=== PATIENT | female | born 1955 | race Two or more races ===

== ENCOUNTER 2021-08-06 22:24 | Inpatient (IN) | payer MEDICARE, OTHER ==
[~2021-08-06] VITALS: Ht 165.1 cm; Wt 59.9 kg
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
[2021-08-07] MEDS ORDERED: PREG-58 PO (12:01)
[2021-08-07] MEDS ORDERED: SUMA100T16 PO (12:01)
[2021-08-07] MEDS ORDERED: OXYC-133 PO (12:01)
[2021-08-07] MEDS ORDERED: AMLO-212 PO (12:01)
[2021-08-07] MEDS ORDERED: MECL-159 PO (12:04)
[2021-08-07] MEDS ORDERED: ASPI-966 PO (12:04)
[2021-08-07] MEDS ORDERED: MAGNESIUM HYDROXIDE 30 ML UDC PO PRN (12:30)
[2021-08-07] MEDS ORDERED: LORAZEPAM 0.5 MG TABLET PO PRN (12:30)
[2021-08-07] MEDS ORDERED: BLOOD SUGAR DIAGNOSTIC 1 EACH STRIP IN ONE (12:30)
--- NOTE | 2021-08-07 13:08 | NUR ---
NATHANIEL Initial Discharge Plan: Pt was currently visiting her daughter at [place], [place]. Pt stated that she would want a nursing facility. NATHANIEL will work with the MD and treatment team to coordinate appropriate discharge.
--- NOTE | 2021-08-07 13:24 | NUR ---
NATHANIEL Family Contact: SW attempted to contact pt's daughter Tamia ([phone]) to gather collateral. However, daughter was unavailable and this check writer left a detailed voicemail.
[2021-08-07 16:00] VITALS: BP 154/73
--- NOTE | 2021-08-07 16:03 | NUR ---
NATHANIEL Family Contact: NATHANIEL spoke with patient's daughter Tamia ([phone]) to gather collateral. Daughter stated that pt has been an alcoholic and has been on cocaine since the age of 15. She reported that pt used to live in [place]. Daughter expressed that she currently lives in [place], [place] and is unable to take care of pt. She is unmanageable per daughter and stated she will need a SNF. NATHANIEL contacted Dr. Tinoco and shared this information.
--- NOTE | 2021-08-07 16:08 | NUR ---
Substance Abuse Intervention: Patient was provided with a brief substance abuse intervention and referred to [facility] ([phone]), [facility] ([phone]), and [facility] ([phone]). Pt refused intervention and denied use of drugs. Pt's daughter Tamia expressed that pt abuses drugs and uses cocaine. Daughter expressed that pt is alcoholic and started at the age 15.
[2021-08-07] MEDS: ACETAMINOPHEN 325 MG TABLET PO PRN (17:11)
--- NOTE | 2021-08-07 17:12 | NUR ---
RN NOTE-M PT W INCREASING PAIN AND RESTLESSNESS. UNCOMFORTABLE. REQUESTING OPIATE PAIN MED. MESSAGED TO [facility] ABOUT RECONCILING RX, ATIVAN 1 MG AND TYLENOL 650 MG ADMINISTERED FOR ANXIETY AND PAIN
[2021-08-07] MEDS ORDERED: oxyCODONE IR immediate release 5 MG PO PRN (17:30)
--- NOTE | 2021-08-07 17:40 | NUR ---
RN NOTE- TO [facility] ORDERED OXYCODONE 10 MG PO Q6H PRN
[2021-08-07] MEDS ORDERED: AMLODIPINE BESYLATE 5 MG TABLET PO PRN (20:00)
--- NOTE | 2021-08-07 20:00 | NUR ---
GPS-RN NOTES: PATIENT REFUSED PHOTO OF HER FACE TO BE TAKEN FOR PROPER IDENTIFICATION. DESPITE OF EXPLANATION PROVIDED PT STILL REFUSED.
[2021-08-07 20:08] VITALS: BP 152/75
[2021-08-07] MEDS: risperiDONE 1 MG TABLET PO SCH (21:00)
[2021-08-07] MEDS: ASPIRIN/ACETAMINOPHEN/CAFFEINE 1 EACH TABLET PO PRN (21:34)
--- NOTE | 2021-08-07 21:34 | NUR ---
GPS-RN NOTES: EXCEDRIN 1 TAB PO GIVEN PER PATIENT'S REQUEST FOR MIGRAINE. WILL CONTINUE TO MONITOR.
[2021-08-07] MEDS: oxyCODONE IR immediate release 5 MG PO PRN (21:40)
--- NOTE | 2021-08-07 21:40 | NUR ---
GPS-RN NOTES: BILATERAL SHOULDER PAIN PATIENT C/O BILATERAL SHOULDER PAIN ON A PAIN SCALE OF 8/10. PRN OXYCODONE IR 10MG PO GIVEN ORDERED PER PT'S REQUEST. WILL CONTINUE TO REASSESS.
--- NOTE | 2021-08-07 21:41 | NUR ---
GPS-RN NOTES: MEDICATION REFUSAL PATIENT REFUSED SCHEDULED RISPERDAL FOR TONIGHT. DESPITE OF EDUCATION PROVIDED REGARDING MEDICATION COMPLIANCE. PATIENT CONTINUED TO REFUSE X3. PATIENT STATES "NO, I DON'T WANT IT, I'M NOT CRAZY". WILL CONTINUE TO MONITOR AND WILL NOTIFY MD.
[2021-08-08] MEDS: oxyCODONE IR immediate release 5 MG PO PRN ×2 (06:40→15:26)
--- NOTE | 2021-08-08 06:41 | NUR ---
GPS-RN NOTES: GENERALIZED PAIN PATIENT C/O GENERALIZED PAIN ON A PAIN SCALE OF 8/10. PRN OXYCODONE IR 10MG PO GIVEN ORDERED PER PT'S REQUEST. WILL CONTINUE TO REASSESS.
[2021-08-08] MEDS: MECLIZINE HCL 25 MG TABLET PO PRN ×2 (07:00→19:20)
--- NOTE | 2021-08-08 07:01 | NUR ---
GPS-RN NOTES: PRN MECLIZINE HCL 25MG PO GIVEN PER PATIENT'S REQUEST FOR DIZZINESS. WILL CONTINUE TO MONITOR.
[2021-08-08 07:19] LABS: CHOLESTEROL 174 mg/dL (<200); HDL CHOLESTEROL 55 mg/dL (40-60); LDL 83 mg/dL (0-99); TRIGLYCERIDES 182 mg/dL (30-150)
[2021-08-08 08:00] VITALS: BP 123/74
--- NOTE | 2021-08-08 08:47 | NUR ---
SNF Referral: NATHANIEL sent clinicals to [facility] ([phone]) for placement option. SW sent H & P, progress note, and medication list. NATHANIEL sent to Earline at the facility (admissions).
[2021-08-08] MEDS: risperiDONE 1 MG TABLET PO SCH ×3 (09:00→21:00)
[2021-08-08] MEDS: PREGABALIN 25 MG CAPSULE PO SCH ×2 (09:40→17:00)
[2021-08-08 09:49] LABS: ALBUMIN 3.1 g/dL (3.4-5.0); BILIRUBIN,TOTAL 0.2 mg/dL (0.2-1.0); CALCIUM, SERUM 8.4 mg/dL (8.5-10.1); CREATININE 0.6 mg/dL (0.6-1.3); POTASSIUM 4.2 mmol/L (3.5-5.1); TOTAL PROTEIN, SERUM 6.5 g/dL (6.4-8.2)
[2021-08-08] MEDS: MAG HYDROX/AL HYDROX/SIMETH 30 ML UDC PO PRN (10:45)
--- NOTE | 2021-08-08 15:10 | NUR ---
SNF Contact: SW sent clinicals to [facility] who reviewed pt's packet and stated they will accept pt.
--- NOTE | 2021-08-08 15:10 | NUR ---
SNF Contact: NATHANIEL sent clinicals to [facility] ([phone]) for placement option. [facility] admin stated they cannot accept pt due to insurance issues.
--- NOTE | 2021-08-08 15:26 | NUR ---
patient c/o generalize pain medicated with OXY-IR will continue to monitor .
[2021-08-08 16:00] VITALS: BP 122/74
--- NOTE | 2021-08-08 19:23 | NUR ---
GPS-RN NOTES: PATIENT C/O DIZZINESS. PRN MECLIZINE HCL 25MG 1 TAB PO GIVEN PER PATIENT'S REQUEST. WILL CONTINUE TO MONITOR FOR PATIENT'S SAFETY.
[2021-08-08 20:00] VITALS: BP 141/75
--- NOTE | 2021-08-08 21:34 | NUR ---
GPS-RN NOTES: MEDICATION REFUSAL PATIENT REFUSED SCHEDULED RISPERDAL FOR TONIGHT. DESPITE OF EDUCATION PROVIDED REGARDING MEDICATION COMPLIANCE. PATIENT CONTINUED TO REFUSE X3. PATIENT STATED "NO, I DON'T WANT IT, I'M NOT RETARDED AND I AM NOT CRAZY". DR. LOVELACE IN THE UNIT MADE AWARE THAT PATIENT IS NON-COMPLIANT WITH RISPERDAL.
[2021-08-08] MEDS: ZOLPIDEM TARTRATE 5 MG TABLET PO PRN (23:20)
--- NOTE | 2021-08-08 23:20 | NUR ---
GPS-RN NOTES: INSOMNIA PATIENT C/O INABILITY TO SLEEP. PRN AMBIEN 5MG I TAB PO GIVEN. WILL CONTINUE TO MONITOR.
[2021-08-09] MEDS: oxyCODONE IR immediate release 5 MG PO PRN ×3 (04:38→23:10)
[2021-08-09] MEDS: MAG HYDROX/AL HYDROX/SIMETH 30 ML UDC PO PRN ×2 (04:40→11:08)
--- NOTE | 2021-08-09 04:40 | NUR ---
GPS-RN NOTES: MAALOX 30ML PO GIVEN PER PT'S REQUEST FOR INDIGESTION. WILL CONTINUE TO MONITOR.
[2021-08-09] MEDS: ASPIRIN/ACETAMINOPHEN/CAFFEINE 1 EACH TABLET PO PRN (05:15)
[2021-08-09 08:00] VITALS: BP 143/76
[2021-08-09] MEDS: PREGABALIN 25 MG CAPSULE PO SCH ×2 (08:39→17:06)
[2021-08-09] MEDS: risperiDONE 1 MG TABLET PO SCH ×2 (08:40→21:00)
[2021-08-09] MEDS: ACETAMINOPHEN 325 MG TABLET PO PRN (11:08)
[2021-08-09] MEDS: MECLIZINE HCL 25 MG TABLET PO PRN ×2 (15:50→23:12)
[2021-08-09 16:00] VITALS: BP 138/64
[2021-08-09 20:00] VITALS: BP 124/66
[2021-08-09] MEDS: ZOLPIDEM TARTRATE 5 MG TABLET PO PRN (23:11)
[2021-08-10] MEDS: MAG HYDROX/AL HYDROX/SIMETH 30 ML UDC PO PRN (06:16)
[2021-08-10] MEDS: ACETAMINOPHEN 325 MG TABLET PO PRN (06:16)
[2021-08-10 08:00] VITALS: BP 128/69
[2021-08-10] MEDS: risperiDONE 1 MG TABLET PO SCH ×3 (08:26→21:00)
[2021-08-10] MEDS: PREGABALIN 25 MG CAPSULE PO SCH ×2 (08:26→16:17)
[2021-08-10] MEDS: oxyCODONE IR immediate release 5 MG PO PRN ×2 (09:45→20:22)
[2021-08-10 12:38] LABS: BASOPHILS % (AUTO) 0.6 % (0.0-2.0); EOSINOPHILS % (AUTO) 2.3 % (0.0-6.0); HEMATOCRIT 34 % (33-45); HEMOGLOBIN 11.3 g/dL (11.5-14.8); LYMPHOCYTES # (AUTO) 1.8 K/uL (0.8-4.8); LYMPHOCYTES % (AUTO) 42.3 % (20.0-44.0); MEAN CORPUSCULAR HGB CONC 33 g/dl (31.0-36.0); MEAN CORPUSCULAR VOLUME 96 fL (82-100); MONOCYTES # (AUTO) 0.5 K/uL (0.1-1.30); MONOCYTES % (AUTO) 12.1 % (2.0-12.0); NEUTROPHILS # (AUTO) 1.8 K/uL (1.8-8.9); NEUTROPHILS % (AUTO) 42.7 % (43.0-81.0); PLATELET COUNT (AUTO) 405 K/uL (150-450); RED BLOOD CELL COUNT(AUTO) 3.58 MIL/uL (4.0-5.2); WHITE BLOOD COUNT (AUTO) 4.1 K/uL (4.3-11.0)
[2021-08-10 12:54] LABS: ALBUMIN 3.7 g/dL (3.4-5.0); BILIRUBIN,DIRECT 0.1 mg/dL (0.0-0.2); BILIRUBIN,TOTAL 0.4 mg/dL (0.2-1.0); CALCIUM, SERUM 8.7 mg/dL (8.5-10.1); CREATININE 0.6 mg/dL (0.6-1.3); MAGNESIUM 2.3 mg/dL (1.8-2.4); PHOSPHORUS 4.5 mg/dL (2.5-4.9); POTASSIUM 4.5 mmol/L (3.5-5.1); TOTAL PROTEIN, SERUM 7.7 g/dL (6.4-8.2)
[2021-08-10] MEDS: ASPIRIN/ACETAMINOPHEN/CAFFEINE 1 EACH TABLET PO PRN ×2 (13:47→22:09)
--- NOTE | 2021-08-10 15:11 | NUR ---
Pt. requested for a second hearing. Writ of [facility] form faxed to the court. Spoke to Debra from the court and confirmed that they received the form and they will call on Saturday. Addendum: 08/10/21 at 1736 by HAO VALDEZ RN Dr. Tinoco is aware
[2021-08-10 16:00] VITALS: BP 140/91
--- NOTE | 2021-08-10 19:30 | NUR ---
GPS RN NOTE, RECEIVED PATIENT AWAKE AND IN BED, NO S/S OR COMPLAINTS OF PAIN AT THIS TIME. PATIENT IS DISPLAYING NO S/S OF APPARENT DISTRESS AT THIS TIME. PATIENT BREATHING IS UNLABORED WITH EQUAL RISE AND FALL OF THE CHEST. PATIENT IS ALERT AND ORIENTED X 3 ON ROOM AIR WITH A SPO2 97%. PATIENT IS COMPLIANT WITH MEDICATIONS, ANXIOUS AT TIMES, NEEDY, DELUSIONAL, COOPERATIVE AND NEEDS REDIRECTION. PATIENT DENIES SUICIDAL AND HOMICIDAL IDEATIONS AT THIS TIME. PATIENT ASSISTED WITH TURNING AND REPOSITIONING Q2HR AND PRN FOR COMFORT AND CIRCULATION. PATIENT HAS NO NEEDS AT THIS TIME. PATIENT EDUCATED ON THE USE OF THE CALL BE[place]. PATIENT BED SIDE RAILS UP X 2 FOR SAFETY. PATIENT BED IS LOCKED, LOW, WITH BED ALARM ON. WILL CONTINUE TO MONITOR THIS PATIENT Q15 MINUTES WITH THE HELP OF STAFF TO MAINTAIN SAFETY.
[2021-08-10 20:00] VITALS: BP 130/74
--- NOTE | 2021-08-10 20:22 | NUR ---
GPS RN NOTE, PATIENT HAS A COMPLAINT OF GENERALIZED PAIN AT 8 OUT OF 10 ON THE PAIN SCALE AND IS REQUESTING OXY IR AT THIS TIME. PATIENT VITAL SIGNS ARE STABLE. GAVE OXY IR PO Q6HR PRN ORDERED. WILL REASSESS PAIN AND I WILL CONTINUE TO MONITOR THIS PATIENT WITH THE HELP OF STAFF.
[2021-08-10] MEDS: DIVALPROEX SODIUM 250 MG TABLET.DR PO SCH (22:00)
--- NOTE | 2021-08-10 22:01 | NUR ---
GPS RN NOTE, PATIENT REFUSED RISPERDAL 0.5MG PO Q12HR AND DEPAKOTE DR 250MG PO HS. OFFERED AFOREMENTIONED MEDICATION THREE TIMES AND STILL PATIENT REFUSED STATING, " NO I DON'T WANT THOSE MEDICATIONS THEIR NOT GOOD FOR MY LIVER ". EDUCATED PATIENT ON THE RISKS AND BENEFITS OF TAKING AND REFUSING DEPAKOTE AND RISPERDAL. WILL CONTINUE TO MONITOR THIS PATIENT WITH THE HELP OF STAFF.
--- NOTE | 2021-08-10 22:09 | NUR ---
GPS RN NOTE, PATIENT HAS A COMPLAINT OF A MIGRAINE AND IS REQUESTING EXCEDRIN AT THIS TIME. PATIENT VITAL SIGNS ARE STABLE. GAVE EXCEDRIN 1 TAB PO PRN ORDERED. WILL REASSESS FOR PAIN AND I WILL CONTINUE TO MONITOR THIS PATIENT WITH THE HELP OF STAFF.
[2021-08-10] MEDS: ZOLPIDEM TARTRATE 5 MG TABLET PO PRN (23:13)
--- NOTE | 2021-08-10 23:13 | NUR ---
GPS RN NOTE, PATIENT HAS A COMPLAINT OF INSOMNIA AND IS REQUESTING AMBIEN AT THIS TIME. PATIENT VITAL SIGNS ARE STABLE. GAVE AMBIEN 5 MG PO HS PRN ORDERED. WILL REASSESS FOR INSOMNIA AND I WILL CONTINUE TO MONITOR THIS PATIENT.
[2021-08-11] MEDS: MECLIZINE HCL 25 MG TABLET PO PRN (03:57)
--- NOTE | 2021-08-11 03:57 | NUR ---
GPS RN NOTE, PATIENT HAS A COMPLAINT OF FEELING DIZZY AND IS REQUESTING ANTIVERT AT THIS TIME. PATIENT VITAL SIGNS ARE STABLE. GAVE ANTIVERT PO TID PRN ORDERED. WILL REASSESS FOR DIZZINESS AND I WILL CONTINUE TO MONITOR THIS PATIENT.
[2021-08-11] MEDS: MAG HYDROX/AL HYDROX/SIMETH 30 ML UDC PO PRN (05:38)
[2021-08-11] MEDS: oxyCODONE IR immediate release 5 MG PO PRN ×3 (05:39→21:05)
--- NOTE | 2021-08-11 05:40 | NUR ---
GPS RN NOTE, PATIENT HAS A COMPLAINT OF INDIGESTION AND IS REQUESTING MAALOX AT THIS TIME. PATIENT VITAL SIGNS ARE STABLE. GAVE MAALOX 1 UNIT DOSE Q4HR PRN ORDERED. WILL REASSESS FOR INDIGESTION AND I WILL CONTINUE TO MONITOR THIS PATIENT WITH THE HELP OF STAFF.
[2021-08-11 08:00] VITALS: BP 126/64
[2021-08-11] MEDS: PREGABALIN 25 MG CAPSULE PO SCH ×2 (08:02→16:18)
[2021-08-11] MEDS: risperiDONE 1 MG TABLET PO SCH ×2 (09:00→21:00)
[2021-08-11] MEDS: DIVALPROEX SODIUM 250 MG TABLET.DR PO SCH ×3 (09:00→21:11)
[2021-08-11] MEDS: ASPIRIN/ACETAMINOPHEN/CAFFEINE 1 EACH TABLET PO PRN (09:47)
--- NOTE | 2021-08-11 09:59 | NUR ---
Pt. took only the Lyrica and refused to take Risperdal po and Depakote po, was explained on the importance and offered 3x and still refusing, per pt. she doesn't need it and she has a lot of medical problems.
--- NOTE | 2021-08-11 13:07 | NUR ---
Pt. refused to take Depakote, offered 3x and explained on the importance and still refusing and said "I don't need it".
--- NOTE | 2021-08-11 15:19 | NUR ---
Writ of [facility] scheduled on Saturday at 8:30 AM and the [facility] Hearing scheduled on Saturday. Dr. Tinoco made aware by the criminal justice social worker.
[2021-08-11 16:00] VITALS: BP 130/63
--- NOTE | 2021-08-11 19:30 | NUR ---
GPS RN NOTE, RECEIVED PATIENT AWAKE AND IN BED, HAS A COMPLAINT OF GENERALIZED PAIN AND IS TAKING PO PAIN MEDICATION FOR THIS PAIN. PATIENT IS DISPLAYING NO S/S OF APPARENT DISTRESS AT THIS TIME. PATIENT BREATHING IS UNLABORED WITH EQUAL RISE AND FALL OF THE CHEST. PATIENT IS ALERT AND ORIENTED X 3 ON ROOM AIR WITH A SPO2 97%. PATIENT IS COMPLIANT WITH MEDICATIONS, ANXIOUS AT TIMES, NEEDY, DELUSIONAL, COOPERATIVE, AND NEEDS REDIRECTION. PATIENT DENIES SUICIDAL AND HOMICIDAL IDEATIONS AT THIS TIME. PATIENT ASSISTED WITH TURNING AND REPOSITIONING Q2HR AND PRN FOR COMFORT AND CIRCULATION. PATIENT HAS NO NEEDS AT THIS TIME. PATIENT EDUCATED ON THE USE OF THE CALL BEASLEY. PATIENT BED SIDE RAILS UP X 2 FOR SAFETY. PATIENT BED IS LOCKED, LOW, WITH BED ALARM ON. WILL CONTINUE TO MONITOR THIS PATIENT Q15 MINUTES WITH THE HELP OF STAFF TO MAINTAIN SAFETY.
[2021-08-11 19:49] VITALS: BP 141/74
--- NOTE | 2021-08-11 21:11 | NUR ---
GPS RN NOTE, PATIENT REFUSED RISPERDAL 0.5MG PO Q12HR AND DEPAKOTE DR 250MG PO HS. OFFERED AFOREMENTIONED MEDICATION THREE TIMES AND STILL PATIENT REFUSED STATING, " NO I DON'T WANT THOSE MEDICATIONS BECAUSE IT GIVES MY A HEADACHE, I HAVE ENLARGED HEART, AND THEY MAKE ME SICK TO MY STOMACH ". EDUCATED PATIENT ON THE RISKS AND BENEFITS OF TAKING AND REFUSING DEPAKOTE AND RISPERDAL. WILL CONTINUE TO MONITOR THIS PATIENT WITH THE HELP OF STAFF.
[2021-08-11] MEDS: ZOLPIDEM TARTRATE 5 MG TABLET PO PRN (23:13)
[2021-08-12 08:00] VITALS: BP 126/74
[2021-08-12] MEDS: PREGABALIN 25 MG CAPSULE PO SCH ×2 (08:02→16:10)
[2021-08-12] MEDS: risperiDONE 1 MG TABLET PO SCH ×2 (09:00→21:00)
[2021-08-12] MEDS: DIVALPROEX SODIUM 250 MG TABLET.DR PO SCH ×3 (09:00→21:53)
[2021-08-12] MEDS: ASPIRIN/ACETAMINOPHEN/CAFFEINE 1 EACH TABLET PO PRN (09:02)
--- NOTE | 2021-08-12 10:15 | NUR ---
Pt. refused to take Risperdal po and Depakote po, was explained on the importance and offered 3x and still refusing, per pt. she doesn't need it.
[2021-08-12] MEDS ORDERED: FIXODENT DENTURE ADHESIVE CREAM TUBE PO PRN (11:30)
[2021-08-12] MEDS: oxyCODONE IR immediate release 5 MG PO PRN ×2 (11:45→20:23)
[2021-08-12] MEDS: MAG HYDROX/AL HYDROX/SIMETH 30 ML UDC PO PRN (13:35)
--- NOTE | 2021-08-12 13:49 | NUR ---
Pt. refused to take Depakote, offered 3x and explained on the importance and still refusing and said "I don't need it".
[2021-08-12 16:00] VITALS: BP 124/59
--- NOTE | 2021-08-12 19:30 | NUR ---
GPS RN NOTE, RECEIVED PATIENT AWAKE AND IN BED, HAS A COMPLAINT OF GENERALIZED PAIN AND IS TAKING PO PAIN MEDICATION FOR THIS PAIN. PATIENT IS DISPLAYING NO S/S OF APPARENT DISTRESS AT THIS TIME. PATIENT BREATHING IS UNLABORED WITH EQUAL RISE AND FALL OF THE CHEST. PATIENT IS ALERT AND ORIENTED X 3 ON ROOM AIR WITH A SPO2 99%. PATIENT IS COMPLIANT WITH MEDICATIONS, ANXIOUS AT TIMES, NEEDY, DELUSIONAL, COOPERATIVE, AND NEEDS REDIRECTION. PATIENT DENIES SUICIDAL AND HOMICIDAL IDEATIONS AT THIS TIME. PATIENT ASSISTED WITH TURNING AND REPOSITIONING Q2HR AND PRN FOR COMFORT AND CIRCULATION. PATIENT HAS NO NEEDS AT THIS TIME. PATIENT EDUCATED ON THE USE OF THE CALL BEASLEY. PATIENT BED SIDE RAILS UP X 2 FOR SAFETY. PATIENT BED IS LOCKED, LOW, WITH BED ALARM ON. WILL CONTINUE TO MONITOR THIS PATIENT Q15 MINUTES WITH THE HELP OF STAFF TO MAINTAIN SAFETY.
[2021-08-12 20:11] VITALS: BP 148/62
--- NOTE | 2021-08-12 20:23 | NUR ---
GPS RN NOTE, PATIENT HAS A COMPLAINT OF ACUTE LEFT SHOULDER PAIN AT 8 OUT OF 10 ON THE PAIN SCALE AND IS REQUESTING OXY IR AT THIS TIME. PATIENT VITAL SIGNS ARE STABLE. GAVE OXY IR PO Q6HR PRN ORDERED. WILL REASSESS PAIN AND I WILL CONTINUE TO MONITOR THIS PATIENT WITH THE HELP OF STAFF.
--- NOTE | 2021-08-12 20:43 | NUR ---
GPS RN NOTE, PATIENT HAS A COMPLAINT OF LEFT SHOULDER PAIN AT 8 OUT 10 ON THE PAIN SCALE. PATIENT STATES, " I HAD A LEFT SHOULDER REPLACEMENT AND I MY SHOULDER HURTS MORE THAN USUAL AFTER I TRANSFERRED FROM MY WHEELCHAIR TO BED I THINK IT MIGHT HAVE COME OUT OF SOCKET ". PATIENT HAS FULL PASSIVE RANGE OF MOTION WITH PAIN. APPLIED ICE AND PAGED [employer] [facility] AND INFORMED DR US OF MY FINDINGS. DR US ORDERED LEFT SHOULDER X-RAY 1 VIEW STAT. ALL ORDERS NOTED AND CARRIED OUT WILL CONTINUE TO MONITOR THIS PATIENT WITH THE HELP OF STAFF.
--- NOTE | 2021-08-12 21:53 | NUR ---
GPS RN NOTE, PATIENT REFUSED RISPERDAL 0.5MG PO Q12HR AND DEPAKOTE DR 250MG PO HS. OFFERED AFOREMENTIONED MEDICATION THREE TIMES AND STILL PATIENT REFUSED STATING, " NO I DON'T WANT THOSE MEDICATIONS BECAUSE I DON'T HEAR OR SEE THINGS, AND I DON'T HAVE A PROBLEM WITH MY MOOD". EDUCATED PATIENT ON THE RISKS AND BENEFITS OF TAKING AND REFUSING DEPAKOTE AND RISPERDAL. WILL CONTINUE TO MONITOR THIS PATIENT WITH THE HELP OF STAFF.
[2021-08-12] MEDS: ACETAMINOPHEN 325 MG TABLET PO PRN (23:42)
[2021-08-12] MEDS: ZOLPIDEM TARTRATE 5 MG TABLET PO PRN (23:42)
--- NOTE | 2021-08-12 23:44 | NUR ---
GPS RN NOTE, PATIENT HAS COMPLAINT OF CHRONIC RIGHT AND LEFT SHOULDER AT 5 OUT OF 10 ON THE PAIN SCALE AND IS REQUESTING TYLENOL AT THIS TIME. PATIENT VITAL SIGNS ARE STABLE. GAVE TYLENOL 650MG PO Q6HR PRN ORDERED. WILL REASSESS PAIN AND I WILL CONTINUE TO MONITOR THIS PATIENT.
[2021-08-13] MEDS: ASPIRIN/ACETAMINOPHEN/CAFFEINE 1 EACH TABLET PO PRN (06:21)
[2021-08-13] MEDS: MECLIZINE HCL 25 MG TABLET PO PRN ×2 (06:21→17:07)
[2021-08-13 08:00] VITALS: BP 132/53
[2021-08-13] MEDS: DIVALPROEX SODIUM 250 MG TABLET.DR PO SCH ×3 (08:11→21:14)
[2021-08-13] MEDS: risperiDONE 1 MG TABLET PO SCH ×2 (08:11→21:00)
[2021-08-13] MEDS: PREGABALIN 25 MG CAPSULE PO SCH ×2 (08:32→17:08)
[2021-08-13] MEDS: oxyCODONE IR immediate release 5 MG PO PRN ×2 (11:22→21:15)
--- NOTE | 2021-08-13 11:22 | NUR ---
RN-CO: OXYCODONE 10 MG PO GIVEN FOR C/O MODERATE PAIN ON BOTH SHOULDERS AND BOTH KNEES.
--- NOTE | 2021-08-13 12:45 | NUR ---
RN-CO: PT REFUSED HER DEPAKOTE, SHE STATED " I TOLD YOU I DON'T TAKE THOSE MEDICATIONS!"
[2021-08-13] MEDS: MAG HYDROX/AL HYDROX/SIMETH 30 ML UDC PO PRN (14:50)
[2021-08-13 16:00] VITALS: BP 113/60
[2021-08-13 21:05] VITALS: BP_SYST 118; BP_SYST 99; BP_DIAS 66; BP_DIAS 72
--- NOTE | 2021-08-13 21:15 | NUR ---
GPS-RN NOTES: CALLED DR. LOVELACE REGARDING SCHEDULE FOR WRIT OF [facility] VIA VIDEO WITH [employer] ON 08/14/2021 AT 8:30AM. PER DR. LOVELACE HE WILL BE HERE IN THE UNIT TOMORROW. DR LOVELACE ALSO MADE AWARE OF [facility] SCHEDULE TOMORROW ON 08/14/2021 AT 10:00 AM. WILL ENDORSE TO THE DAY SHIFT NURSE.
--- NOTE | 2021-08-13 21:15 | NUR ---
GPS-RN NOTES: MEDICATION REFUSAL PATIENT REFUSED SCHEDULED RISPERDAL AND DEPAKOTE FOR TONIGHT. DESPITE OF EDUCATION PROVIDED REGARDING MEDICATION COMPLIANCE. PATIENT CONTINUED TO REFUSE X3. PATIENT STATED, "I HAVE NO MENTAL PROBLEM, THERE'S NOTHING WRONG WITH ME". WILL CONTINUE TO MONITOR.
--- NOTE | 2021-08-13 21:15 | NUR ---
GPS-RN NOTES: PATIENT C/O PAIN ON BILATERAL SHOULDERS AND KNEES, ON PAIN SCALE OF 8/10. PRN OXYCODONE 10MG PO GIVEN. WILL CONTINUE TO REASSESS.
[2021-08-13] MEDS: ZOLPIDEM TARTRATE 5 MG TABLET PO PRN (22:30)
--- NOTE | 2021-08-13 22:30 | NUR ---
GPS-RN NOTES: INSOMNIA PATIENT C/O INABILITY TO SLEEP. PRN AMBIEN 5MG I TAB PO GIVEN. WILL CONTINUE TO MONITOR.
[2021-08-14 08:00] VITALS: BP 135/67
[2021-08-14] MEDS: risperiDONE 1 MG TABLET PO SCH (09:00)
[2021-08-14] MEDS: DIVALPROEX SODIUM 250 MG TABLET.DR PO SCH ×2 (09:00→13:00)
[2021-08-14] MEDS: oxyCODONE IR immediate release 5 MG PO PRN (09:42)
[2021-08-14] MEDS: MAG HYDROX/AL HYDROX/SIMETH 30 ML UDC PO PRN (09:42)
[2021-08-14] MEDS: PREGABALIN 25 MG CAPSULE PO SCH (09:42)
--- NOTE | 2021-08-14 11:56 | NUR ---
SW Discharge Note: [place] [facility] [address], [place] [address]; ). Please arrange transportation at 3PM. Trapeze Performer spoke with Jeannine communications systems engineer at [facility]; ([phone], who stated patient will be accepted today. Patients daughter Tamia ([phone]) is aware of pts discharge. Patient is alert and oriented x3 and is unable to plan for self-care. Patient denies any suicidal or homicidal ideations. Patient is aware and agreeable with discharge plans. Patient will continue to follow-up with Patient will continue to follow-up with her Psychiatrist [place]. [place] [address] [place] [address]; ([phone]) and (locksmith helper) Dr. Faulkner [address], [place] [address]; ([phone]). Patient was provided with a brief substance abuse intervention and referred to [facility] ([phone]), [facility] ([phone]), and [facility] ([phone]) doing drugs such as cocaine and drinking alcohol. Pt refused resources. Patient presents with euthymic mood and congruent mood. Patient refused to sign the homeless waiver upon discharge and a copy was placed in the chart. Homeless resources were provided and include [address] line for shelters and homeless resources. A copy of all resources given to patient was also placed in the chart. Patient presents with euthymic mood and congruent affect.
[2021-08-14] MEDS: MECLIZINE HCL 25 MG TABLET PO PRN (13:32)
[2021-08-14 16:00] VITALS: BP 124/64
--- NOTE | 2021-08-14 17:10 | NUR ---
ALARM INSTALLER NOTE: Patient discharged to residential facility [facility] at 17:10 .Patient condition stable .patient denies SI/HI/AVH.Psychiatric TX plans met ,medical tx plans deferred for continual monitory .Returned belonging to patient ,medications reconcile send with patient to facility , report given to Jordan RN in [facility].Behavior improved .VS stable ,no s/s of distress .Hold discontinued by . and called with discharge orders .Patient discharged at 1710 with ambulance .
== END 2021-08-14 17:10 | DRG 885 ==
LOC: GPS 08-07 11:28
PROVIDERS: ADMIT Psychiatry & Neurology Psychiatry
DX: F31.64 Bipolar disorder, current episode mixed, severe, with psychotic features (principal); I10 Essential (primary) hypertension; Z91.14 Patient's other noncompliance with medication regimen; G31.84 Mild cognitive impairment of uncertain or unknown etiology; G43.909 Migraine, unspecified, not intractable, without status migrainosus; Z96.60 Presence of unspecified orthopedic joint implant; F29 Unspecified psychosis not due to a substance or known physiological condition; G89.4 Chronic pain syndrome; Z73.6 Limitation of activities due to disability
CPT/HCPCS: 36415; 73020; 80053-TC; 80061-TC; 80076-TC; 82247-TC; 82248-TC; 83690-TC; 83735-TC; 84100-TC; 85025-TC; 87081-TC; 97116-TC; 97530-TC; J8597